=== PATIENT | male | born 1950 | race Caucasian/White ===

== ENCOUNTER 2016-11-05 10:33 | Inpatient (IN) | payer BC, OTHER ==
[2016-11-05] MEDS ORDERED: Ketorolac INJ* 15 MG/ML 1 ML VIAL IV ONE (10:58)
[2016-11-05] MEDS ORDERED: Ondansetron INJ* 2 MG/ML VIAL IV ONE (10:58)
[2016-11-05] MEDS ORDERED: Famotidine IV* 10 MG/ML 2 ML (20 mg) IV ONE (10:58)
--- NOTE | 2016-11-05 11:08 | ED ---
Abdominal Pain/Male - HPI Summary HPI Summary: 66 male presents to ED with complaints of RLQ pain that began yesterday and appeared to have worsened today. Patient states it began around the umbilicus and across mid abdomen but then RLQ began to become more sore upon palpation and and localized pain. Describes pain to be bloated, sharp and aching. Nothing makes pain better. Patient thought he was constipated as he has had infrequent small bowel movements however bowel movements do not relieve pain. Has not tried any medications. Tried drinking Frapiccino before arrival which "usually goes right through me" however did not help him. Patient denies urinary and genitalia symptoms. Never had any previous GI history other than GERD. No surgeries other than back surgery. Admits to nausea however denies vomiting. No fever/chills. No blood in stool, appear normal but small. No diarrhea. Has been traveling over the past few days which he thought causes some constipation, however the RLQ pain concerns him for his appendix. Eating and drinking normally although has not wanted to eat due feeling distended. PMHx includes HIV positive, non-detectable, LBBB, arthritis. No other complaints at this time. - History of Current Complaint Chief Complaint: EDAbdPain Stated Complaint: ABD PAIN Time Seen by Provider: 11/05/16 10:46 Hx Obtained From: Patient Onset/Duration: Sudden Onset, Lasting Days, Still Present, Worse Since Timing: Constant Severity Initially: Mild Severity Currently: Moderate Pain Intensity: 8 Pain Scale Used: 0-10 Numeric Location: Discrete At: RLQ, Umbilical Radiates: No Character: Sharp, Dull, Other: - aching Aggravating Factor(s): Other: - touch Alleviating Factor(s): Nothing Associated Signs And Symptoms: Positive: Constipation, Nausea. Negative: Fever , Back Pain, Blood in Stool, Urinary Symptoms, Vomiting, Diarrhea - Risk Factors Testicular Torsion: Negative Cardiac Risk Factors: Negative - Allergies/Home Medications Allergies/Adverse Reactions: Allergies Allergy/AdvReac Type Severity Reaction Status Date / Time environmental Allergy Mild See Comment Uncoded 09/17/12 09:07 PMH/Surg Hx/FS Hx/Imm Hx Endocrine/Hematology History: Reports: Hx Blood Disorders - HIV Denies: Hx Diabetes Cardiovascular History: Reports: Hx Hypercholesterolemia, Other Cardiovascular Problems/Disorders - LBBB Denies: Hx Hypertension, Hx Pacemaker/ICD Respiratory History: Denies: Hx Asthma Musculoskeletal History: Reports: Hx Back Problems Sensory History: Denies: Hx Hearing Aid Psychiatric History: Denies: Hx Panic Disorder - Surgical History Surgery Procedure, Year, and Place: LUMBAR L4-5; LASIX SURGERY; TINSILECTOMY; CARDIAC CATH. NO STENTS - Immunization History Immunizations Up to Date: Yes Infectious Disease History: No Infectious Disease History: Reports: Hx Human Immunodeficiency Virus (HIV) Denies: Traveled Outside the [place] in Last 30 Days - Family History Known Family History: Positive: None - Social History Alcohol Use: Rare Substance Use Type: Reports: None Smoking Status (MU): Never Smoked Tobacco Review of Systems Constitutional: Negative Cardiovascular: Negative Respiratory: Negative Positive: Abdominal Pain, Nausea, Other - constipation Genitourinary: Negative Skin: Negative Neurological: Negative All Other Systems Reviewed And Are Negative: Yes Physical Exam Triage Information Reviewed: Yes Vital Signs On Initial Exam: Initial Vitals Temp Pulse Resp BP Pulse Ox 97.6 F 94 16 137/98 100 11/05/16 10:40 11/05/16 10:40 11/05/16 10:40 11/05/16 10:40 11/05/16 10:40 Vital Signs Reviewed: Yes Appearance: Positive: Well-Appearing, No Pain Distress, Well-Nourished Skin: Positive: Warm, Skin Color Reflects Adequate Perfusion, Dry. Negative: Cold, Numb, Diaphoretic, Pale, Erythema @ Head/Face: Positive: Normal Head/Face Inspection Eyes: Positive: EOMI, BEL, Conjunctiva Clear ENT: Positive: Normal ENT inspection, Hearing grossly normal, Pharynx normal Neck: Positive: Supple, Nontender Respiratory/Lung Sounds: Positive: Clear to Auscultation, Breath Sounds Present. Negative: Rales, Rhonchi, Wheezes Cardiovascular: Positive: Normal, RRR, Pulses are Symmetrical in both Upper and Lower Extremities. Negative: Murmur, Rub Abdomen Description: Positive: No Organomegaly, Soft, CVA Tenderness (R), Distended, Guarding, McBurney's Point Tenderness, Other: - tender on palpation of RLQ, rest of exam non tender. negative psoas and rovsings. negative murphys. + rebound tenderness.. Negative: Bruit, CVA Tenderness (L), Hernia @, Peritoneal Signs, Pulsatile Mass Bowel Sounds: Positive: Hypoactive Male Genital Exam: Positive: normal genitalia Musculoskeletal: Positive: Normal, Strength/ROM Intact Neurological: Positive: Normal, Sensory/Motor Intact, Alert, Oriented to Person Place, Time, Reflexes Intact Psychiatric: Positive: Affect/Mood Appropriate - Alyce Coma Scale Coma Scale Total: 15 Diagnostics - Vital Signs Vital Signs Temp Pulse Resp BP Pulse Ox 11/05/16 10:40 97.6 F 94 16 137/98 100 - Laboratory Result Diagrams: 11/05/16 11:28 11/05/16 11:28 Lab Statement: Any lab studies that have been ordered have been reviewed, and results considered in the medical decision making process. Abdominal Pain Fem Course/Dx - Course Course Of Treatment: labs obtained. given fluids, pepcid, zofran and toradol to help with nausea and pain. patient also having some acid reflux and asked for "tums" which is why pepcid and maalox was given. patient had relief. urinalysis obtained. no concern for bleeding and unable to obtain stool culture. due to PE findings, lab results and clinical presentation obtained CT to rule out appendicitis, kidney stone, and diverticulitis. Patient was signed out to Dr Perea at 12:40pm due to changing location of shift, pending CT results. - Diagnoses Differential Diagnosis/HQI/PQRI: Appendicitis, Bowel Obstruction, Constipation, Diverticulitis, Ureteral Stone, Urinary Tract Infection Provider Diagnoses: Abdominal pain - Provider Notifications Discussed Care Of Patient With: Dr Perea Time Discussed With Above Provider: 12:30 Discharge - Discharge Plan Condition: Stable Disposition: OTHER Discharge Disposition Comment: Signed out to Dr Perea at 12:30pm due to changing shift Referrals: Jesus Mancia MD [Primary Care Provider] -
[2016-11-05] MEDS: NS 0.9% 1000 ML* 2,000 ML IV ONE ×2 (11:28→12:05)
[2016-11-05] MEDS ORDERED: Al Hydrox/Mg Hydrox/Simet LIQ* 30 ML UDC PO ONE (11:39)
[2016-11-05 11:43] LABS: Hematocrit 44 % (42-52); Hemoglobin 15.2 g/dl (14.0-18.0); Mean Corpuscular HGB Conc 35 g/dl (31-36); Mean Corpuscular Hemoglobin 33 pg (27-31); Mean Corpuscular Volume 94 fL (80-94); Mean Platelet Volume 8 um3 (7.4-10.4); Red Blood Count 4.66 10^6/ul (4.0-5.4); Red Cell Distribution Width 13 % (10.5-15); White Blood Count 12.6 10^3/ul (3.5-10.8)
[2016-11-05 11:44] LABS: Add Diff/Slide Review? Slide Review Added; Comments Flag Yes
[2016-11-05 12:00] LABS: Albumin 4.3 g/dL (3.2-5.2); BUN/Creatinine Ratio 14.2 (8-20); C Reactive Protein 28.56 mg/L (< 5.00); Calcium 9.2 mg/dL (8.6-10.3); EGFR African American 83.2 (>60); EGFR Non-African American 64.7 (>60); Globulin 3.1 g/dL (2-4); Magnesium 2.1 mg/dL (1.9-2.7); Total Bilirubin 0.9 mg/dL (0.2-1.0); Total Protein 7.4 g/dL (6.4-8.9)
[2016-11-05] MEDS ORDERED: Iohexol 300* (CONTRAST) 10 ML SDV IV ONE (12:56)
--- NOTE | 2016-11-05 14:57 | RAD ---
INDICATION: RIGHT lower quadrant pain for one day. Associated back pain. Previous back surgery. COMPARISON: No relevant prior exams available on the [facility] PACS for comparison. TECHNIQUE: Multidetector CT images were obtained from the lung bases to the ischial tuberosities with 100 mL Omnipaque 300 IV and oral contrast. Multiplanar reformation. REPORT: Minimal dependent basilar atelectasis. 1 cm well-circumscribed water density cyst at the dome of the LEFT lateral hepatic segment. Unremarkable gallbladder, pancreas, spleen. Unremarkable upper GI and small bowel. Dilated retrocecal appendix measuring up to 1.6 cm diameter with mural enhancement and 1.5 cm relative low density appendicolith at the proximal segment. Mild to moderate periappendiceal inflammatory stranding. No periappendiceal abscess collection evident. Trace free fluid at the RIGHT lower quadrant. Negative for free intraperitoneal air. Unremarkable colon. Small fat-containing umbilical hernia without inflammatory change. Normal adrenal glands. Unremarkable kidneys with symmetric nephrograms and pyelograms. Unremarkable ureters and urinary bladder as well as the prostate and seminal vesicles. Negative for lymphadenopathy. Mild atherosclerotic plaque of normal diameter abdominal aorta and iliac arteries. Physiologic distention of the IVC. Negative for suspicious osseous lesions. IMPRESSION: Acute appendicitis with predisposing appendicolith at the proximal segment. Negative for periappendiceal abscess or resulting bowel obstruction.
[2016-11-05] MEDS ORDERED: Bupivacaine 0.25% SDV* 30 ML ONE (16:11)
[2016-11-05] MEDS ORDERED: fentaNYL* 50 MCG/ML 2 ML VIAL (100 MCG VIAL) ONE (16:39)
[2016-11-05] MEDS ORDERED: Midazolam* 1 MG/ML 2 ML VIAL (2 MG) ONE (16:39)
[2016-11-05] MEDS ORDERED: Propofol* 10 MG/ML 20 ML BTL IV PUSH ONE (16:46)
[2016-11-05] MEDS ORDERED: Dexamethasone IV* 4 MG/ML 1 ML (4 MG) ONE (16:46)
[2016-11-05] MEDS ORDERED: Succinylcholine* 20 MG/ML 10 ML VIAL ONE (16:46)
[2016-11-05] MEDS ORDERED: Cisatracurium* 2 MG/ML MDV 5 ML ONE (16:46)
[2016-11-05] MEDS ORDERED: Lidocaine 2% PF * 5 ML VIAL ONE (16:46)
[2016-11-05] MEDS ORDERED: HYDROmorphone INJ* 1 MG/ML CARPUJECT SYRINGE ONE (17:17)
[2016-11-05] MEDS ORDERED: HYDROmorphone INJ* 1 MG/ML CARPUJECT SYRINGE IV PRN (17:41)
[2016-11-05] MEDS ORDERED: PROCHLORPERAZINE INJ 5 MG/ML 2 ML VIAL IV PRN (17:41)
[2016-11-05] MEDS ORDERED: Ondansetron INJ* 2 MG/ML VIAL IV PRN ×2 (17:41→18:45)
[2016-11-05] MEDS ORDERED: Acetaminophen TAB* 325 MG PO PRN (17:41)
[2016-11-05] MEDS ORDERED: fentaNYL* 50 MCG/ML 2 ML VIAL (100 MCG VIAL) IV PRN (17:41)
[2016-11-05] MEDS ORDERED: DiMENhydriNATE IV* 50 MG/ML VIAL IV PUSH PRN (17:41)
[2016-11-05] MEDS ORDERED: Ketorolac INJ* 30 MG/ML 1 ML VIAL ONE (18:15)
[2016-11-05] MEDS ORDERED: Ondansetron INJ* 2 MG/ML VIAL ONE (18:15)
[2016-11-05] MEDS ORDERED: Neostigmine Methylsulfate* 2 MG/2 ML SYRINGE ONE (18:40)
--- NOTE | 2016-11-05 18:43 | SURGPN ---
Brief Operative Note - Surgery Procedures: OPERATIVE REPORT PRE-OP: Acute appendicitis POST-OP:Acute gangrenous appendicitis PROCEDURE: Laparoscopic appendectomy SURGEON: MD Sulema ANESTHESIA: General with local with Dr. Leo ASST: none IVF: 1 liter of crystalloid EBL: min SPECIMEN: appendix DRAIN: none WOUND CLASS:4 COMPLICATIONS: none TO PACU
[2016-11-05] MEDS ORDERED: Ketorolac INJ* 30 MG/ML 1 ML VIAL IV PUSH PRN (18:45)
[2016-11-05] MEDS ORDERED: Morphine INJ* 2 MG/ML 1 ML SYRINGE (TWO MG - NEW SYRINGE VERSION) IV PRN (18:45)
[2016-11-05] MEDS: NS 0.9% 1000 ML* 1,000 ML IV SCH (19:38)
[2016-11-05] MEDS ORDERED: EFAVIRENZ PO SCH ×2 (21:00→23:00)
[2016-11-05] MEDS ORDERED: [UNRECOGNIZED DRUG - OTHER] PO SCH ×2 (21:00→23:00)
[2016-11-05] MEDS ORDERED: EMTRICITAB PO SCH ×2 (21:00→23:00)
--- NOTE | 2016-11-05 21:17 | HP ---
CC: [facility]; Dr. Jesus Mancia, [facility]* HISTORY AND PHYSICAL: DATE OF ADMISSION: 11/05/16 CHIEF COMPLAINT: Right lower quadrant abdominal pain and anorexia. HISTORY OF PRESENT ILLNESS: Mr. Jordan Suero is a 66-year-old gentleman, who is HIV positive, was very well treated with almost no viral load, who yesterday developed some epigastric discomfort when he was flying back from [place]. Then last night, the pain became more severe in the epigastrium. This morning, he was noted to have right lower quadrant abdominal pain, which has worsened over the course of the day. He presented to the emergency room. He was noted to be afebrile. He had no complaints of shakes or chills. He was noted to have tenderness in the right lower quadrant and be mildly distended. He underwent laboratory workup, included a white blood cell count of 12,600 with a neutrophil percent of 84.6 with a lymphocyte percent of 6.9. Absolute lymphocyte was 0.9. Electrolytes, BUN and creatinine were within normal limits. He had a C- reactive protein of 28.56. He underwent a CT scan of the abdomen and pelvis. I did review these images. This shows a dilated retrocecal appendix with an appendicolith at the base of the appendix. There is a mild periappendiceal inflammation and some trace fluid in the area but no evidence of abscess or perforation. These findings are consistent with acute appendicitis. There were no other acute findings noted. Surgical consultation was obtained. PAST MEDICAL HISTORY: 1. HIV positivity. 2. Left bundle branch block. 3. History of gastroesophageal reflux disease. 4. Remote history of atrial fibrillation. 5. Hypercholesterolemia. PAST SURGICAL HISTORY: Back surgery. MEDICATIONS: Include: 1. Tylenol p.r.n. 2. Pravastatin 1 tablet p.o. daily. 3. Naprosyn 400 mg p.r.n. 4. Nexium 20 mg daily. 5. Atripla 1 tablet p.o. daily. 6. Aspirin 325 mg daily. ALLERGIES: He has no known drug allergies. SOCIAL HISTORY: He is in a same-sex relationship. He does not use tobacco. He drinks alcohol on a social basis. 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 REVIEW OF SYSTEMS: Hematologic: He is HIV positive. He is followed by Dr. Mancia at the [facility]. He states that his blood counts have been remarkably stable over the past several years. He states no viral HIV load. His most recent blood work done on 07/16/16 showed a CD3 absolute count of 1191 and a CD4 absolute count of 599. All of his other lymphocyte parameters were within normal range. He recently underwent a stress test at [facility], it was normal. An EKG also showed no change from 2008 and did include a left bundle branch block. PHYSICAL EXAMINATION GENERAL: A well-developed, well-nourished male with normal attention to grooming. VITAL SIGNS: He is afebrile, pulse 94, blood pressure 160/91. LUNGS: Clear to auscultation with normal respiratory effort. HEART: Regular rate and rhythm without murmurs, rubs, or gallops. ABDOMEN: Soft, slightly distended. He has an umbilical hernia but that is easily reducible. Diminished bowel sounds throughout. He has tenderness in the right lower quadrant with localized rebound, guarding, and peritoneal irritation. PSYCHIATRIC: He is awake, alert, and oriented x3. He has normal judgment and insight. IMPRESSION: 1. Acute appendicitis. 2. Human immunodeficiency positivity, well treated and asymptomatic as per above. 3. Left bundle branch block. 4. Gastroesophageal reflux disease. 5. Hypercholesterolemia. PLAN: Laparoscopic appendectomy today. He is optimized from his HIV standpoint, I discussed his care with Dr. Kartik Hinkle here, hospitalist, and in this situation with his most recent laboratory reports and clinical status, there is no further intervention or laboratory workup that is indicated other than the usual treatment for acute appendicitis including the normal antibiotic regimen. Plan will be for laparoscopic appendectomy today. The procedure was discussed with the patient. The risks but not limited to bleeding, infection, intra- abdominal abscess formation, injury to peritoneal and retroperitoneal structures , possibility of an open procedure, and the risk of deep vein thrombosis and pulmonary embolism, risks of general anesthesia. Hospital stay, his recovery times, and activity restrictions were all explained. The patient's questions were answered, we will proceed today. [id number]/[facility] #: [id number] [facility]
[2016-11-05] MEDS ORDERED: NS 0.9% 1000 ML* 1,000 ML IV ONE (21:45)
[2016-11-05] MEDS ORDERED: Acetaminophen TAB* 325 MG ONE (21:55)
[2016-11-05] MEDS: Acetaminophen TAB* 325 MG PO PRN (21:56)
[2016-11-05] MEDS ORDERED: Ketorolac INJ* 15 MG/ML 1 ML VIAL ONE (22:22)
[2016-11-05] MEDS: Ketorolac INJ* 15 MG/ML 1 ML VIAL IV PUSH PRN (22:24)
[2016-11-05 22:46] LABS: Hematocrit 38 % (42-52); Hemoglobin 13.2 g/dl (14.0-18.0); Mean Corpuscular HGB Conc 35 g/dl (31-36); Mean Corpuscular Hemoglobin 33 pg (27-31); Mean Corpuscular Volume 94 fL (80-94); Mean Platelet Volume 8 um3 (7.4-10.4); Red Blood Count 3.97 10^6/ul (4.0-5.4); Red Cell Distribution Width 13 % (10.5-15); White Blood Count 6.3 10^3/ul (3.5-10.8)
[2016-11-05 23:01] LABS: Albumin 3.2 g/dL (3.2-5.2); BUN/Creatinine Ratio 11.8 (8-20); Calcium 7.9 mg/dL (8.6-10.3); EGFR African American 93.7 (>60); EGFR Non-African American 72.8 (>60); Globulin 2.5 g/dL (2-4); Potassium 3.8 mmol/L (3.5-5.0); Total Bilirubin 1.4 mg/dL (0.2-1.0); Total Protein 5.7 g/dL (6.4-8.9)
[2016-11-05] MEDS: oxyCODONE/Acetamin 5/325 MG* TAB PO PRN (23:09)
[2016-11-06] MEDS ORDERED: NS 0.9% 1000 ML* 1,000 ML IV ONE ×2 (01:38→04:00)
--- NOTE | 2016-11-06 04:19 | OP ---
CC: [facility]; Dr. Jesus Mancia, [facility]* OPERATIVE REPORT: DATE OF OPERATION: 11/05/16 - Inpatient, room 340-01 DATE OF : 48 SURGEON: Umer Leone MD OBGYN SPECIALIST: None. ANESTHESIOLOGIST: Osiris Leo MD ANESTHESIA: Local with general. PRE-OP DIAGNOSIS: Acute appendicitis. POST-OP DIAGNOSIS: Acute gangrenous appendicitis. OPERATIVE PROCEDURE: Laparoscopic appendectomy. INDICATIONS: Mr. Jordan Suero is a 66-year-old gentleman, presents to the emergency room with almost 24 hours of abdominal pain, mainly in the right lower quadrant. CT scan has confirmed acute appendicitis and now being taken to the operating room for a laparoscopic appendectomy. The procedure was discussed with the patient and the risks and benefits were all explained and outlined in the preoperatively transcribed history and physical. ESTIMATED BLOOD LOSS: Minimal. SPECIMEN: Appendix. WOUND CLASSIFICATION: IV. DRAINS: None. COMPLICATION: None. IV FLUIDS: 1 L crystalloid. FINDINGS: The patient had acute gangrenous appendicitis with an appendicolith at the base of the appendix. Upon entering the abdomen, there was no evidence of perforation or abscess; however, manipulating the appendix, there was a small amount of purulent intra-appendiceal lumen contents, spilled, which was quickly aspirated and irrigated giving the case a wound status of 4. No appendicoliths were spilled. DESCRIPTION OF PROCEDURE: Written informed consent was obtained, the abdomen was marked with indelible ink and antibiotics were administered. The patient was taken to the operating room and placed in the supine position. Sequential compression devices and warming blanket were applied. The abdomen was prepped and draped in the usual sterile fashion. Time-out verification was completed. Initially, a small transverse incision was made just above the umbilicus at the midline and the fascia was divided and the peritoneal cavity was entered under direct vision. A 12-mm blunt port was inserted and the abdomen was insufflated to 15 mmHg. Under direct vision, a 5-mm port was placed in the left lower abdominal wall and a second 5-mm port was placed in the suprapubic position. The appendix was identified. It was intraperitoneal from the most part, however , it was gangrenous, markedly distended, and thick walled with a very edematous mesentery. It was quite adherent to the cecum and to the small bowel. I freed this up with blunt dissection. I did tear a small portion of the distal part of the appendix and a small amount of turbid purulent fluid was spilled. I was able to irrigate this and clamped the appendix to prevent further spillage or contamination. There was no evidence of abscess or perforation. The appendix was quite adherent to the lateral wall of the cecum and retroperitoneum and the lateral abdominal wall and once I was able to free this up with some blunt dissection, I identified the thickened mesentery and I took this sequentially with the mesentery down towards the base of the appendix. It was obvious that there was a rather large appendicolith at the base of the appendix and distal to this was the gangrenous portion and very proximal portion of the appendix, which only included 3 or 4 mm was viable and healthy as was the cecum. With care, I continued to mobilize and divide the mesentery and also dissected some of the cecum, especially laterally, it was quite adherent to the anterior abdominal wall due to some inflammation to assure myself, but I was able to get the stapler down below the gangrenous portion of the appendix. I carefully evaluated the terminal ileum, I entered the cecum and there was no evidence of impingement or interference in my dissection. Next, the martinez load of a 45-mm stapler was then used along the base of the appendix, actually on to the cecum and was fired through healthy tissue. The appendix was then placed through an EndoCatch bag and brought out through the umbilical incision. The right lower quadrant was irrigated thoroughly. Hemostasis was assured. The staple line was intact and through viable tissue. Almost 3 L of saline was used to irrigate the right lower quadrant and pelvis until clear. I did not place a drain. All ports were removed under the direct vision of the camera. The umbilical fascia was closed with interrupted 0 Polysorb suture. Skin at all 3 incisions was approximated with subcuticular 4-0 Polysorb suture. Steri-Strips were applied. The patient tolerated the procedure well and was taken to the recovery room in stable condition. [id number]/[facility] #: [id number] [place]
[2016-11-06] MEDS: oxyCODONE/Acetamin 5/325 MG* TAB PO PRN ×4 (05:10→20:12)
--- NOTE | 2016-11-06 07:32 | PN ---
Progress Note - Progress Note Date of Service: 11/06/16 SOAP: Subjective: Patient initially seen at 0645 this morning I discussed his care with nursing staff and Dr. Galloway throughout the night and was kept informed of his condition He had a Tmax of 101.5 and developed tachycardia and hypotension and required 3 liters of NS bolus overnight in addition to his IVF Labs last night showed normal WBC, renal function and lactic acid. This morning he is without complaint except for abdominal pain-he has not taken any pain meds until just this morning when he asked for a percocet. He has had no N/V and has an appetite and would like to eat. He had 2 loose BM's overnight and has passed some flatus He has had no CP or SOB He is urinating and is ambulating to the bathroom on his own. Objective: [] Temp Pulse Resp BP Pulse Ox 98.4 F 108 16 123/66 91 11/06/16 03:34 11/06/16 04:57 11/06/16 05:10 11/06/16 04:57 11/06/16 04:57 Intake & Output 11/04/16 11/05/16 11/06/16 11/07/16 06:59 06:59 06:59 06:59 Intake Total 96191 Output Total 775 Balance 13362 Weight 176 lb Intake: IV Fluids 01811 LR 1250 NS (0.9%) 3820 Oral 540 Output: Urine 775 Other: # Bowel Movements 1 Estimated Stool Amount Medium PEX: Awake alert and comfortable,NAD Lungs are clear with slight decreased breath sounds at the bases Cor is RRR and rapid, regular Abd is soft and slightly distended. Incisions are clean and dry. Bowel sounds are present but hypoactive. There is appropriate incisional tenderness and some tenderness in the right lower quadrant. There is no peritoneal irritation, rigidity or guarding. Ext without edema Laboratory Last Values WBC 6.3 10^3/ul (3.5-10.8) 11/05/16 22:30 RBC 3.97 10^6/ul (4.0-5.4) L 11/05/16 22:30 Hgb 13.2 g/dl (14.0-18.0) L 11/05/16 22:30 Hct 38 % (42-52) L 11/05/16 22:30 MCV 94 fL (80-94) 11/05/16 22:30 MCH 33 pg (27-31) H 11/05/16 22:30 MCHC 35 g/dl (31-36) 11/05/16 22:30 RDW 13 % (10.5-15) 11/05/16 22:30 Plt Count 185 10^3/ul (150-450) 11/05/16 22:30 MPV 8 um3 (7.4-10.4) 11/05/16 22:30 Neut % (Auto) 85.2 % (38-83) H 11/05/16 22:30 Lymph % (Auto) 9.1 % (25-47) L 11/05/16 22:30 Barren % (Auto) 5.3 % (1-9) 11/05/16 22:30 Eos % (Auto) 0.2 % (0-6) 11/05/16 22:30 Baso % (Auto) 0.2 % (0-2) 11/05/16 22:30 Absolute Neuts (auto) 5.3 10^3/ul (1.5-7.7) 11/05/16 22:30 Absolute Lymphs (auto) 0.6 10^3/ul (1.0-4.8) L 11/05/16 22:30 Absolute Monos (auto) 0.3 10^3/ul (0-0.8) 11/05/16 22:30 Absolute Eos (auto) 0 10^3/ul (0-0.6) 11/05/16 22:30 Absolute Basos (auto) 0 10^3/ul (0-0.2) 11/05/16 22:30 Absolute Nucleated RBC 0 10^3/ul 11/05/16 22:30 Nucleated RBC % 0 11/05/16 22:30 Sodium 137 mmol/L (133-145) 11/05/16 22:30 Potassium 3.8 mmol/L (3.5-5.0) 11/05/16 22:30 Chloride 110 mmol/L (101-111) 11/05/16 22:30 Carbon Dioxide 23 mmol/L (22-32) 11/05/16 22:30 Anion Gap 4 mmol/L (2-11) 11/05/16 22:30 BUN 12 mg/dL (6-24) 11/05/16 22:30 Creatinine 1.02 mg/dL (0.67-1.17) 11/05/16 22:30 Est GFR ( Amer) 93.7 (>60) 11/05/16 22:30 Est GFR (Non-Af Amer) 72.8 (>60) 11/05/16 22:30 BUN/Creatinine Ratio 11.8 (8-20) 11/05/16 22:30 Glucose 107 mg/dL (70-100) H 11/05/16 22:30 Lactic Acid 1.2 mmol/L (0.5-2.0) 11/05/16 22:30 Calcium 7.9 mg/dL (8.6-10.3) L 11/05/16 22:30 Magnesium 2.1 mg/dL (1.9-2.7) 11/05/16 11:28 Total Bilirubin 1.40 mg/dL (0.2-1.0) H 11/05/16 22:30 AST 17 U/L (13-39) 11/05/16 22:30 ALT 21 U/L (7-52) 11/05/16 22:30 Alkaline Phosphatase 63 U/L (34-104) 11/05/16 22:30 C-Reactive Protein 28.56 mg/L (< 5.00) H 11/05/16 11:28 Total Protein 5.7 g/dL (6.4-8.9) L 11/05/16 22:30 Albumin 3.2 g/dL (3.2-5.2) 11/05/16 22:30 Globulin 2.5 g/dL (2-4) 11/05/16 22:30 Albumin/Globulin Ratio 1.3 (1-3) 11/05/16 22:30 Lipase 18 U/L (11.0-82.0) 11/05/16 11:28 Blood cultures are pending Assessment: POD# 1 s/p laparoscopic appendectomy for gangrenous appendicitis Sepsis HIV positive GERD Plan: He has responded to fluids with improvement in BP and decrease in HR. He is now afebrile. On Monday he was in [place] and traveled back to [place] late Monday night and he developed abdominal pain in [place]. He had very little po intake on Monday and had nothing to eat or drink on Monday prior to presentation to the ER-thus I think he was quite dehydrated on presentation and in addition to his septic state he required quite a bit of IV fluids to achieve euvolemia. Overall this morning he has improved. Plan will be careful observation, check labs and continue IV antibiotics and fluids. He has had adequate urine output. At this point I do not feel that there is continuing intra-abdominal sepsis ( appendiceal stump leak, visceral injury, abscess) but he will need to be followed clinically very carefully and if he does not show continued improvement or worsening I will consider a return to the operating room for laparoscopy and evaluation. I discussed this with him at length this morning and he is aware of this possibility. He will be kept NPO for now Check this morning's labs Subq heparin PPI IVF IV Zosyn Discussed with Dr. Galloway this morning-I appreciate his assistance. He feels he is on the appropriate antibiotics. I also discussed with patient and his partner Oneil.
[2016-11-06 07:47] LABS: Hematocrit 37 % (42-52); Hemoglobin 12.7 g/dl (14.0-18.0); Mean Corpuscular HGB Conc 35 g/dl (31-36); Mean Corpuscular Hemoglobin 33 pg (27-31); Mean Corpuscular Volume 95 fL (80-94); Mean Platelet Volume 8 um3 (7.4-10.4); Red Blood Count 3.85 10^6/ul (4.0-5.4); Red Cell Distribution Width 13 % (10.5-15); White Blood Count 10.3 10^3/ul (3.5-10.8)
[2016-11-06 07:55] LABS: Urine Bilirubin Negative (Negative); Urine Glucose Negative (Negative); Urine Nitrite Negative (Negative)
[2016-11-06] MEDS: Ketorolac INJ* 15 MG/ML 1 ML VIAL IV PUSH PRN ×3 (08:01→20:47)
[2016-11-06] MEDS: Pantoprazole IV* 40 MG IV SCH (08:01)
[2016-11-06] MEDS: Heparin VIAL(*) 5000 UNITS/ML VIAL (FIVE THOUSAND) SUBCUT SCH ×3 (08:02→23:59)
[2016-11-06 08:12] LABS: BUN/Creatinine Ratio 9.3 (8-20); Calcium 7.7 mg/dL (8.6-10.3); EGFR African American 79.2 (>60); EGFR Non-African American 61.6 (>60); Potassium 4.2 mmol/L (3.5-5.0)
[2016-11-06] MEDS: NS 0.9% 1000 ML* 1,000 ML IV SCH ×2 (09:38→17:49)
--- NOTE | 2016-11-06 10:04 | PN ---
Progress Note - Progress Note Date of Service: 11/06/16 SOAP: Subjective: He is doing well-ambulated in the halls quite a bit and wants to eat Objective: Temp Pulse Resp BP Pulse Ox 98.7 F 100 16 114/65 93 11/06/16 07:56 11/06/16 07:56 11/06/16 07:56 11/06/16 07:56 11/06/16 07:56 PEX: Comfortable Abd is soft and non-distended. Appropriate incisional tenderness. No peritoneal irritation. Laboratory Last Values WBC 10.3 10^3/ul (3.5-10.8) 11/06/16 07:38 RBC 3.85 10^6/ul (4.0-5.4) L 11/06/16 07:38 Hgb 12.7 g/dl (14.0-18.0) L 11/06/16 07:38 Hct 37 % (42-52) L 11/06/16 07:38 MCV 95 fL (80-94) H 11/06/16 07:38 MCH 33 pg (27-31) H 11/06/16 07:38 MCHC 35 g/dl (31-36) 11/06/16 07:38 RDW 13 % (10.5-15) 11/06/16 07:38 Plt Count 176 10^3/ul (150-450) 11/06/16 07:38 MPV 8 um3 (7.4-10.4) 11/06/16 07:38 Neut % (Auto) 85.6 % (38-83) H 11/06/16 07:38 Lymph % (Auto) 8.0 % (25-47) L 11/06/16 07:38 [place] % (Auto) 5.9 % (1-9) 11/06/16 07:38 Eos % (Auto) 0.2 % (0-6) 11/06/16 07:38 Baso % (Auto) 0.3 % (0-2) 11/06/16 07:38 Absolute Neuts (auto) 8.9 10^3/ul (1.5-7.7) H 11/06/16 07:38 Absolute Lymphs (auto) 0.8 10^3/ul (1.0-4.8) L 11/06/16 07:38 Absolute Monos (auto) 0.6 10^3/ul (0-0.8) 11/06/16 07:38 Absolute Eos (auto) 0 10^3/ul (0-0.6) 11/06/16 07:38 Absolute Basos (auto) 0 10^3/ul (0-0.2) 11/06/16 07:38 Absolute Nucleated RBC 0 10^3/ul 11/06/16 07:38 Nucleated RBC % 0 11/06/16 07:38 INR (Anticoag Therapy) 1.22 (0.89-1.11) H 11/06/16 07:38 APTT 33.2 seconds (26.0-36.3) 11/06/16 07:38 Sodium 138 mmol/L (133-145) 11/06/16 07:38 Potassium 4.2 mmol/L (3.5-5.0) 11/06/16 07:38 Chloride 112 mmol/L (101-111) H 11/06/16 07:38 Carbon Dioxide 22 mmol/L (22-32) 11/06/16 07:38 Anion Gap 4 mmol/L (2-11) 11/06/16 07:38 BUN 11 mg/dL (6-24) 11/06/16 07:38 Creatinine 1.18 mg/dL (0.67-1.17) H 11/06/16 07:38 Est GFR ( Amer) 79.2 (>60) 11/06/16 07:38 Est GFR (Non-Af Amer) 61.6 (>60) 11/06/16 07:38 BUN/Creatinine Ratio 9.3 (8-20) 11/06/16 07:38 Glucose 102 mg/dL (70-100) H 11/06/16 07:38 Lactic Acid 1.2 mmol/L (0.5-2.0) 11/06/16 07:38 Calcium 7.7 mg/dL (8.6-10.3) L 11/06/16 07:38 Magnesium 2.1 mg/dL (1.9-2.7) 11/05/16 11:28 Total Bilirubin 1.40 mg/dL (0.2-1.0) H 11/05/16 22:30 AST 17 U/L (13-39) 11/05/16 22:30 ALT 21 U/L (7-52) 11/05/16 22:30 Alkaline Phosphatase 63 U/L (34-104) 11/05/16 22:30 C-Reactive Protein 28.56 mg/L (< 5.00) H 11/05/16 11:28 Total Protein 5.7 g/dL (6.4-8.9) L 11/05/16 22:30 Albumin 3.2 g/dL (3.2-5.2) 11/05/16 22:30 Globulin 2.5 g/dL (2-4) 11/05/16 22:30 Albumin/Globulin Ratio 1.3 (1-3) 11/05/16 22:30 Lipase 18 U/L (11.0-82.0) 11/05/16 11:28 Urine Color Yellow 11/06/16 07:40 Urine Appearance Clear 11/06/16 07:40 Urine pH 5.0 (5-9) 11/06/16 07:40 Ur Specific [place] 1.013 (1.010-1.030) 11/06/16 07:40 Urine Protein Negative (Negative) 11/06/16 07:40 Urine Ketones Negative (Negative) 11/06/16 07:40 Urine Blood Negative (Negative) 11/06/16 07:40 Urine Nitrate Negative (Negative) 11/06/16 07:40 Urine Bilirubin Negative (Negative) 11/06/16 07:40 Urine Urobilinogen Negative (Negative) 11/06/16 07:40 Ur Leukocyte Esterase Negative (Negative) 11/06/16 07:40 Urine Glucose Negative (Negative) 11/06/16 07:40 Assessment: S/P appendectomy Labs reviewed-normal WBC, hgb and lactic acid His BP and HR are much improved and he is doing well Plan: Start clear liquids IVF IV antibiotics Observe for now
--- NOTE | 2016-11-06 17:12 | ED ---
Fadia Christensen Edward, scribed for Pietro Perea MD on 11/05/16 at 1241 . Progress - Progress Note Progress Note: Pt signed out by Gina Olivia. 66 y/o male presents to the ED c/o RLQ ABD pain since yesterday, worsening. Yesterday the pain was located in the epigastric region. Pt also c/o GERD. Denies fever. Associated sx: mild nausea (resolved) and chills. PE - VITAL SIGNS: Reviewed. GENERAL: Patient is a well-developed and nourished male who is lying comfortable in the stretcher. ~Patient is not in any acute respiratory distress. HEAD AND FACE: Normocephalic and atraumatic. EYES: PERRLA, EOMI x 2, No injected conjunctiva. EARS: Hearing grossly intact. Ear canals and tympanic membranes are WNL. MOUTH: Oropharynx within normal limits. NECK: Supple, trachea is midline, no adenopathy, no JVD. CHEST: Symmetric, no tenderness at palpation LUNGS: Clear to auscultation bilaterally. No wheezing or crackles. CVS: RRR, S1 and S2 present, no murmurs or gallops appreciated. ABDOMEN: Soft, positive RLQ tenderness. No signs of distention. Positive bowel sounds. Guarding without rebound, and no masses palpated. No abdominal bruit or pulsations. EXTREMITIES: FROM in all major joints, no edema, no cyanosis or clubbing. NEURO: Alert and oriented x 3. No acute neurological deficits. Speech is normal. SKIN: Dry and warm - Results/Orders Results/Orders: EKG - SINUS TACHYCARDIA @ 103 BPM. LBBB. ABD/PEL CT - Acute appendicitis with predisposing appendicolith at the proximal segment. Negative for periappendiceal abscess or resulting bowel obstruction. Course/Dx - Course Course Of Treatment: labs obtained. given fluids, pepcid, zofran and toradol to help with nausea and pain. patient also having some acid reflux and asked for "tums" which is why pepcid was given. patient had relief. urinalysis obtained. no concern for bleeding and unable to obtain stool culture. due to lab results and clinical presentation obtained CT to rule out appendicitis. Pt admitted to Dr. Leone at 14:50. ASSESSMENT AND PLAN - Pt is signed out by ARAM Caro. Pt was awaiting abd pel ct r/o appendicitis. CT positive for appendicitis. Dr Leone came to the ED and accepted the pt for further workup and management. The patient is hemodynamically stable and A&Ox3. - Diagnoses Provider Diagnoses: Appendicitis - Provider Notifications Discussed Care Of Patient With: Umer Leone Time Discussed With Above Provider: 14:50 Instructed by Provider To: Admit As Inpatient The documentation as recorded by the Fadia bright Edward accurately reflects the service I personally performed and the decisions made by Eliazar callejas Walter, MD.
[2016-11-06] MEDS: [UNRECOGNIZED DRUG - OTHER] PO SCH (20:13)
[2016-11-06] MEDS: EMTRICITAB PO SCH (20:13)
[2016-11-06] MEDS: EFAVIRENZ PO SCH (20:13)
[2016-11-07] MEDS: oxyCODONE/Acetamin 5/325 MG* TAB PO PRN ×6 (00:49→23:40)
[2016-11-07] MEDS: NS 0.9% 1000 ML* 1,000 ML IV SCH (01:32)
[2016-11-07] MEDS: Ketorolac INJ* 15 MG/ML 1 ML VIAL IV PUSH PRN ×4 (03:37→22:24)
[2016-11-07 07:08] LABS: Hematocrit 32 % (42-52); Hemoglobin 11.6 g/dl (14.0-18.0); Mean Corpuscular HGB Conc 36 g/dl (31-36); Mean Corpuscular Hemoglobin 34 pg (27-31); Mean Corpuscular Volume 94 fL (80-94); Mean Platelet Volume 8 um3 (7.4-10.4); Red Blood Count 3.42 10^6/ul (4.0-5.4); Red Cell Distribution Width 13 % (10.5-15); White Blood Count 9.9 10^3/ul (3.5-10.8)
[2016-11-07 07:22] LABS: BUN/Creatinine Ratio 9.4 (8-20); Calcium 7.8 mg/dL (8.6-10.3); EGFR African American 89.6 (>60); EGFR Non-African American 69.7 (>60); Potassium 3.5 mmol/L (3.5-5.0)
[2016-11-07] MEDS: Heparin VIAL(*) 5000 UNITS/ML VIAL (FIVE THOUSAND) SUBCUT SCH ×3 (07:51→23:41)
[2016-11-07] MEDS: Pantoprazole IV* 40 MG IV SCH (07:51)
[2016-11-07] MEDS ORDERED: NS 0.9% 1000 ML* 1,000 ML IV SCH (08:00)
--- NOTE | 2016-11-07 13:01 | PN ---
Progress Note - Progress Note Date of Service: 11/07/16 SOAP: Subjective: Patient seen at 0800 this morning. He has more incisional pain today-walked quite a bit yesterday He is tolerating liquids without N/V and is passing flatus and has several loose BM's as well. Urinating clear urine in adequate amounts. Objective: Tmax 100.5 Temp Pulse Resp BP Pulse Ox 98.5 F 102 18 139/71 95 11/07/16 11:13 11/07/16 11:13 11/07/16 11:55 11/07/16 11:13 11/07/16 11:13 Intake & Output 11/05/16 11/06/16 11/07/16 11/08/16 06:59 06:59 06:59 06:59 Intake Total 10148 3547 2121 Output Total 775 2500 400 Balance 22383 1047 1721 Weight 176 lb Intake: IV Fluids 70027 1617 1881 LR 1250 NS (0.9%) 3820 1607 1881 IVPB 112 210 zosyn 210 Oral 540 1720 240 Output: Urine 775 2500 400 Other: Estimated Void Medium Date of Last Bowel 11/06/16 Movement # Bowel Movements 1 1 Estimated Stool Amount Medium Medium Small PEX; Comfortable and awake and alert Lungs are clear with decreased sounds at both bases. Cor is RRR and rapid Abd is soft and slightly distended. Incisions are clean and dry. Bowel sounds are present and are hyperactive but not high pitched or tinkling. There is some mild right lower abdominal pain. No rebound or peritoneal irritation. Laboratory Last Values WBC 9.9 10^3/ul (3.5-10.8) 11/07/16 06:48 RBC 3.42 10^6/ul (4.0-5.4) L 11/07/16 06:48 Hgb 11.6 g/dl (14.0-18.0) L 11/07/16 06:48 Hct 32 % (42-52) L 11/07/16 06:48 MCV 94 fL (80-94) 11/07/16 06:48 MCH 34 pg (27-31) H 11/07/16 06:48 MCHC 36 g/dl (31-36) 11/07/16 06:48 RDW 13 % (10.5-15) 11/07/16 06:48 Plt Count 162 10^3/ul (150-450) 11/07/16 06:48 MPV 8 um3 (7.4-10.4) 11/07/16 06:48 Neut % (Auto) 86.4 % (38-83) H 11/07/16 06:48 Lymph % (Auto) 5.3 % (25-47) L 11/07/16 06:48 [place] % (Auto) 6.0 % (1-9) 11/07/16 06:48 Eos % (Auto) 2.0 % (0-6) 11/07/16 06:48 Baso % (Auto) 0.3 % (0-2) 11/07/16 06:48 Absolute Neuts (auto) 8.5 10^3/ul (1.5-7.7) H 11/07/16 06:48 Absolute Lymphs (auto) 0.5 10^3/ul (1.0-4.8) L 11/07/16 06:48 Absolute Monos (auto) 0.6 10^3/ul (0-0.8) 11/07/16 06:48 Absolute Eos (auto) 0.2 10^3/ul (0-0.6) 11/07/16 06:48 Absolute Basos (auto) 0 10^3/ul (0-0.2) 11/07/16 06:48 Absolute Nucleated RBC 0 10^3/ul 11/07/16 06:48 Nucleated RBC % 0 11/07/16 06:48 INR (Anticoag Therapy) 1.22 (0.89-1.11) H 11/06/16 07:38 APTT 33.2 seconds (26.0-36.3) 11/06/16 07:38 Sodium 139 mmol/L (133-145) 11/07/16 06:48 Potassium 3.5 mmol/L (3.5-5.0) 11/07/16 06:48 Chloride 112 mmol/L (101-111) H 11/07/16 06:48 Carbon Dioxide 20 mmol/L (22-32) L 11/07/16 06:48 Anion Gap 7 mmol/L (2-11) 11/07/16 06:48 BUN 10 mg/dL (6-24) 11/07/16 06:48 Creatinine 1.06 mg/dL (0.67-1.17) 11/07/16 06:48 Est GFR ( Amer) 89.6 (>60) 11/07/16 06:48 Est GFR (Non-Af Amer) 69.7 (>60) 11/07/16 06:48 BUN/Creatinine Ratio 9.4 (8-20) 11/07/16 06:48 Glucose 94 mg/dL (70-100) 11/07/16 06:48 Lactic Acid 1.2 mmol/L (0.5-2.0) 11/06/16 07:38 Calcium 7.8 mg/dL (8.6-10.3) L 11/07/16 06:48 Magnesium 2.1 mg/dL (1.9-2.7) 11/05/16 11:28 Total Bilirubin 1.40 mg/dL (0.2-1.0) H 11/05/16 22:30 AST 17 U/L (13-39) 11/05/16 22:30 ALT 21 U/L (7-52) 11/05/16 22:30 Alkaline Phosphatase 63 U/L (34-104) 11/05/16 22:30 C-Reactive Protein 28.56 mg/L (< 5.00) H 11/05/16 11:28 Total Protein 5.7 g/dL (6.4-8.9) L 11/05/16 22:30 Albumin 3.2 g/dL (3.2-5.2) 11/05/16 22:30 Globulin 2.5 g/dL (2-4) 11/05/16 22:30 Albumin/Globulin Ratio 1.3 (1-3) 11/05/16 22:30 Lipase 18 U/L (11.0-82.0) 11/05/16 11:28 Urine Color Yellow 11/06/16 07:40 Urine Appearance Clear 11/06/16 07:40 Urine pH 5.0 (5-9) 11/06/16 07:40 Ur Specific [place] 1.013 (1.010-1.030) 11/06/16 07:40 Urine Protein Negative (Negative) 11/06/16 07:40 Urine Ketones Negative (Negative) 11/06/16 07:40 Urine Blood Negative (Negative) 11/06/16 07:40 Urine Nitrate Negative (Negative) 11/06/16 07:40 Urine Bilirubin Negative (Negative) 11/06/16 07:40 Urine Urobilinogen Negative (Negative) 11/06/16 07:40 Ur Leukocyte Esterase Negative (Negative) 11/06/16 07:40 Urine Glucose Negative (Negative) 11/06/16 07:40 Blood cultures negative at 24 hours. Assessment: POD# 2 s/p lap appy for acute gangrenous appendicitis. HIV positive Sepsis Plan: Fever last night is concerning and he still has a slight tachycardia. WBC is normal as well as renal function and he mobilizing fluid and is having loose bowel movements and passing flatus. He has been tolerating clear liquids. Exam is as expected as this point post operatively. I do not feel that there is acute intra-abdominal process at this point but he will require continued careful evaluation. Will continue IV abx-Zosyn Medical consult regarding any specific management of HIV meds and medical care. Advance diet PPI and subq heparin Increase activity Pulmonary toilet. He requires continued inpatient care. All above discussed with patient and his partner.
--- NOTE | 2016-11-07 15:15 | CONS ---
CONSULTATION REPORT: DATE OF CONSULT: 11/07/16 REQUESTING PHYSICIAN: Dr. Leone. CONSULTING SERVICE: Infectious Disease. REASON FOR CONSULTATION: Fever after appendectomy, HIV. IMPRESSION: 1. Appendicitis, status post laparoscopic appendectomy and small appendiceal abscess with a low-grade fever today. He is overall otherwise improving as far as abdominal pain and bowels, so I think that is likely just normal postoperative fever. His heart rate was in the 130s, coming down to the . He has no chest pain, cough or shortness of breath. 2. Human immunodeficiency virus infection, well controlled. Last CD4 count 600. As far as I know, the viral loads have been undetected. RECOMMENDATIONS: 1. Agree with Zosyn. If his fever persists, we will check a chest x-ray. 2. Continue Atripla and he will follow up with me in a week or two to establish care for following with HIV as he is on a suboptimal regimen as far as long-term side effects go. HISTORY OF PRESENT ILLNESS: This is a 66-year-old man with HIV, admitted with right lower quadrant pain, found to have appendicitis, taken to the operating room by Dr. Leone on the with findings as noted above. He was febrile at 39 degrees on admission and had no fever until this morning at 38.1. He is a little bit short of breath, using his incentive spirometer, but no cough or chest pain. He has right-sided abdominal pain, which is slowly getting better. He is passing gas and has soft to runny stools. He has had no white count today. His heart rate has been in the , blood pressure 150s. He is starting to eat and drink clear diet. PAST MEDICAL HISTORY: 1. HIV. 2. Left bundle branch block. 3. Gastroesophageal reflux disease. 4. Atrial fibrillation. 5. Hyperlipidemia. 6. Spine surgery. MEDICATIONS: 1. Tylenol. 2. Atripla. 3. Heparin subcutaneous injection. 4. Zofran. 5. Pantoprazole. 6. Zosyn 3.375 g IV every 8 hours. ALLERGIES: No known drug allergies. FAMILY HISTORY: No recurrent infections. SOCIAL HISTORY: He lives in [place]. He still works in [employer]. Drinks alcohol occasionally. REVIEW OF SYSTEMS: All negative to a full review of systems except as noted above to full 14-point review of systems. PHYSICAL EXAM: Vital Signs: Temperature 37, heart rate 100, respiratory rate 18, blood pressure 150/70, O2 sat 93% on 2 L. In general, he is awake, not in distress. Neurologic: He is oriented x3. Follows all commands. HEENT: There is no conjunctival hemorrhage. Oropharynx without lesions. Neck: Supple without nuchal rigidity. Lymph Nodes: There is no inguinal, axillary, or epitrochlear lymphadenopathy. Heart is regular and tachycardic without murmurs. Lungs: There are decreased breath sounds at the bases bilaterally without wheezes, rales, or rhonchi. Abdomen: There are bowel sounds present, it is mildly distended. There is right-sided tenderness to palpation. There is no rebound. There are laparoscopy ports that are intact without erythema. Skin: There are no rashes or splinter hemorrhages. Musculoskeletal: There is no spine tenderness to palpation or joint synovitis. DIAGNOSTIC STUDIES/LAB DATA: White blood cell count 9.9, hemoglobin 11.6, platelets 162,000. Creatinine is 1.0. Please see impressions and recommendations outlined above, which I have discussed with Dr. Leone. Thank you for asking me to see Mr. Suero in consultation. [id number]/[facility] #: [id number] B[facility]ILDREN'S HOSPITALVernell
[2016-11-07] MEDS: EFAVIRENZ PO SCH (21:05)
[2016-11-07] MEDS: EMTRICITAB PO SCH (21:05)
[2016-11-07] MEDS: [UNRECOGNIZED DRUG - OTHER] PO SCH (21:05)
[2016-11-08] MEDS: oxyCODONE/Acetamin 5/325 MG* TAB PO PRN ×3 (03:37→19:48)
[2016-11-08] MEDS: Ketorolac INJ* 15 MG/ML 1 ML VIAL IV PUSH PRN (04:21)
[2016-11-08 06:33] LABS: Hematocrit 32 % (42-52); Hemoglobin 11.5 g/dl (14.0-18.0); Mean Corpuscular HGB Conc 36 g/dl (31-36); Mean Corpuscular Hemoglobin 34 pg (27-31); Mean Corpuscular Volume 94 fL (80-94); Mean Platelet Volume 8 um3 (7.4-10.4); Red Blood Count 3.44 10^6/ul (4.0-5.4); Red Cell Distribution Width 13 % (10.5-15); White Blood Count 10.8 10^3/ul (3.5-10.8)
[2016-11-08 06:47] LABS: Albumin 2.7 g/dL (3.2-5.2); BUN/Creatinine Ratio 9.2 (8-20); Calcium 7.9 mg/dL (8.6-10.3); EGFR African American 86.8 (>60); EGFR Non-African American 67.5 (>60); Globulin 2.7 g/dL (2-4); Potassium 3.4 mmol/L (3.5-5.0); Total Bilirubin 0.8 mg/dL (0.2-1.0); Total Protein 5.4 g/dL (6.4-8.9)
[2016-11-08] MEDS: Heparin VIAL(*) 5000 UNITS/ML VIAL (FIVE THOUSAND) SUBCUT SCH ×2 (07:51→16:13)
[2016-11-08] MEDS: Pantoprazole IV* 40 MG IV SCH (07:53)
[2016-11-08] MEDS ORDERED: Ketorolac INJ* 15 MG/ML 1 ML VIAL IV PUSH PRN (08:34)
--- NOTE | 2016-11-08 12:07 | PN ---
Subjective Date of Service: 11/08/16 Interval History: Patient seen and examined at bedside. Patient states he feels much better than yesterday. T max 99.1. Tolerating regular diet without difficulty. HR improved to low 100s. Family History: Unchanged from Admission Social History: Unchanged from Admission Past Medical History: Unchanged from Admission Objective Active Medications: Acetaminophen (Tylenol Tab*) 650 mg PO Q6H PRN Efavirenz/Emtricitabine/Tenofovir (Atripla(Nf)) 1 tab PO BEDTIME [facility] Heparin Sodium (Porcine) (Heparin Vial(*)) 5,000 units SUBCUT Q8H [facility] Piperacillin Sod/Tazobactam (Sod 3.375 gm/ Sodium Chloride) 100 mls @ 25 mls/ hr IVPB Q8H [facility] Morphine Sulfate (Morphine Inj (Syringe)*) 2 mg IV Q2H PRN Ondansetron HCl (Zofran Inj*) 4 mg IV Q6H PRN Oxycodone/Acetaminophen (Percocet 5/325 Tab*) 1 tab PO Q4H PRN Pantoprazole Sodium (Protonix Iv*) 40 mg IV Q24H [facility] Vital Signs 11/08/16 11:04 Temperature 98.5 F Pulse Rate 105 Respiratory 18 Rate Blood Pressure 147/76 (mmHg) O2 Sat by Pulse 92 Oximetry Oxygen Devices in Use Now: None Appearance: sitting up in bed, NAD Eyes: No Scleral Icterus, PERRLA Ears/Nose/Mouth/Throat: NL Teeth, Lips, Gums, Mucous Membranes Moist Neck: NL Appearance and Movements; NL JVP Respiratory: Symmetrical Chest Expansion and Respiratory Effort, Clear to Auscultation Cardiovascular: NL Sounds; No Murmurs; No JVD, RRR Abdominal: - - BS in all four quadrants; Slight tenderness RLQ. Extremities: No Edema Skin: No Rash or Ulcers, - - Incision C/D/I Neurological: Alert and Oriented x 3 Result Diagrams: 11/08/16 06:15 11/08/16 06:15 Assess/Plan/Problems-Billing Patient is a 66 y/o M w/ hx of HIV who is s/p appendectomy. Hospitalists were asked to assist with co-management for patient's persistent fevers and tachycardia. - Patient Problems (1) Fever Comment: T max 99.1 overnight. Suspect most-likely post-operative. WBC remains normal. Heart rate has improved today. Would get CXR if fever returns. Continue IV Zosyn. IVF held for now. (2) S/P appendectomy Comment: Managment per Surgery. Appendix was gangrenous. Continue IV Zosyn. Diet advanced to regular this AM. Continue PRN pain medication. Toradol stopped. (3) HIV (human immunodeficiency virus infection) Comment: Appreciate ID consult. Last CD4 count 600. Viral load undetectable. Patient will follow-up with Dr. Andre as an outpatient. (4) GERD (gastroesophageal reflux disease) Comment: IV Protonix (5) DVT (deep venous thrombosis) Comment: SQ Heparin (6) Full code status Status and Disposition: Management per surgery.
--- NOTE | 2016-11-08 15:00 | PN ---
Progress Note - Progress Note Date of Service: 11/08/16 SOAP: Subjective: Patient initially seen at 0815 this morning He had some dry heaves early this morning but it was after taking Percocet and now he feels better. He is tolerating liquids better and feels less distended. He has had one loose BM already today. Incisional pain improved. Objective: Temp Pulse Resp BP Pulse Ox 98.5 F 105 18 147/76 92 11/08/16 11:04 11/08/16 11:04 11/08/16 11:04 11/08/16 11:04 11/08/16 11:04 Intake & Output 11/06/16 11/07/16 11/08/16 11/09/16 06:59 06:59 06:59 06:59 Intake Total 89158 3547 4437 1948 Output Total 775 2500 2025 625 Balance 80065 1047 2412 1323 Weight 176 lb Intake: IV Fluids 52558 1617 3057 700 LR 1250 NS (0.9%) 3820 1607 3057 700 IVPB 112 210 100 318 zosyn 210 100 318 Oral 540 1720 1280 930 Output: Urine 775 2500 2025 600 Yoo 25 Other: Estimated Void Medium Date of Last Bowel 11/06/16 Movement # Bowel Movements 1 1 1 1 Estimated Stool Amount Medium Medium Medium Small # Voids 1 PEX: Comfortable Lungs are clear Abd is soft and slightly distended. Incisions are clean and dry. Bowel sounds are present and are more normoactive than yesterday, not high pitched or tinkling. There is appropriate incisional pain and some very mild pain in the right lower quadrant. Laboratory Results - last 24 hr 11/08/16 11/08/16 11/08/16 06:15 06:15 06:15 WBC 10.8 RBC 3.44 L Hgb 11.5 L Hct 32 L MCV 94 MCH 34 H MCHC 36 RDW 13 Plt Count 196 MPV 8 Neut % (Auto) 85.0 H Lymph % (Auto) 5.3 L [place] % (Auto) 6.3 Eos % (Auto) 3.2 Baso % (Auto) 0.2 Absolute Neuts (auto) 9.2 H Absolute Lymphs (auto) 0.6 L Absolute Monos (auto) 0.7 Absolute Eos (auto) 0.3 Absolute Basos (auto) 0 Absolute Nucleated RBC 0 Nucleated RBC % 0 Sodium 137 Potassium 3.4 L Chloride 112 H Carbon Dioxide 20 L Anion Gap 5 BUN 10 Creatinine 1.09 Est GFR ( Amer) 86.8 Est GFR (Non-Af Amer) 67.5 BUN/Creatinine Ratio 9.2 Glucose 110 H Lactic Acid 0.5 Calcium 7.9 L Total Bilirubin 0.80 AST 11 L ALT 14 Alkaline Phosphatase 66 Total Protein 5.4 L Albumin 2.7 L Globulin 2.7 Albumin/Globulin Ratio 1.0 Blood cultures are negative at 48 hours Assessment: POD# 3 s/p lap appy for acute gangrenous appendicitis Sepsis-improving HIV positive Plan: Overall he is improved-his HR is coming down and he has now been afebrile for 24 hours. He continues to mobilize fluids and he is tolerating food. WBC remains normal, normal renal function. Will advance diet Saline lock IVF Continue IV antibiotics PPI and subq heparin Appreciate hospitalist consult If continued improvement, plan d/c 11/09.
[2016-11-08] MEDS: [UNRECOGNIZED DRUG - OTHER] PO SCH (21:26)
[2016-11-08] MEDS: EFAVIRENZ PO SCH (21:26)
[2016-11-08] MEDS: EMTRICITAB PO SCH (21:26)
[2016-11-09] MEDS: oxyCODONE/Acetamin 5/325 MG* TAB PO PRN ×2 (00:07→04:14)
[2016-11-09] MEDS: Heparin VIAL(*) 5000 UNITS/ML VIAL (FIVE THOUSAND) SUBCUT SCH ×2 (00:07→07:44)
[2016-11-09 06:58] LABS: Hematocrit 31 % (42-52); Hemoglobin 10.8 g/dl (14.0-18.0); Mean Corpuscular HGB Conc 35 g/dl (31-36); Mean Corpuscular Hemoglobin 33 pg (27-31); Mean Corpuscular Volume 94 fL (80-94); Mean Platelet Volume 8 um3 (7.4-10.4); Red Blood Count 3.26 10^6/ul (4.0-5.4); Red Cell Distribution Width 13 % (10.5-15)
[2016-11-09] MEDS: Pantoprazole IV* 40 MG IV SCH (07:44)
--- NOTE | 2016-11-09 08:48 | PN ---
Progress Note - Progress Note Date of Service: 11/09/16 SOAP: Subjective: He had some nausea earlier this morning and vomited some of the apple sauce that he had eaten in the middle of the night. He feels much better and slept well. He took a Percocet at 0430 and feels that this makes him nauseous on an empty stomach He is passing large amounts of flatus but no further loose stools He has minimal pain which is much better than yesterday He is ambulating without difficulty and would like to go home Objective: AFebrile for 48 hours Temp Pulse Resp BP Pulse Ox 98.9 F 99 14 148/74 93 11/09/16 03:41 11/09/16 03:41 11/09/16 06:14 11/09/16 03:41 11/09/16 03:41 Intake & Output 11/07/16 11/08/16 11/09/16 11/10/16 06:59 06:59 06:59 06:59 Intake Total 3547 4437 2928 Output Total 2500 2025 1625 400 Balance 1047 2412 1303 -400 Intake: IV Fluids 1617 3057 930 NS (0.9%) 1607 3057 720 zosyn 210 IVPB 210 100 318 zosyn 210 100 318 Oral 1720 1280 1680 Output: Urine 2500 2025 1600 400 Yoo 25 Other: Estimated Void Medium Date of Last Bowel 11/06/16 Movement # Bowel Movements 1 1 1 Estimated Stool Amount Medium Medium Small # Voids 1 Blood cultures negative at 72 hours Assessment: POD# 4 s/p lap appy for acute gangrenous appendicitis Afebrile Blood cultures negative Nausea this morning-probably due to taking Percocet on an empty stomach Normal WBC Plan: Will plan d/c home today-with nausea earlier this AM will make sure he does well with breakfast and lunch and if OK with send home after lunch. No antibiotics needed as outpatient Outpatient follow up Postoperative care and restrictions all explained to patient.
--- NOTE | 2016-11-09 08:59 | PN ---
Subjective Date of Service: 11/09/16 Interval History: Patient seen and examined at bedside. Patient having some emesis this AM. He thinks this is from pain medication on an empty stomach. HR improved and afebrile for last 48 hours. Family History: Unchanged from Admission Social History: Unchanged from Admission Past Medical History: Unchanged from Admission Objective Active Medications: Acetaminophen (Tylenol Tab*) 650 mg PO Q6H PRN Efavirenz/Emtricitabine/Tenofovir (Atripla(Nf)) 1 tab PO BEDTIME [facility] Heparin Sodium (Porcine) (Heparin Vial(*)) 5,000 units SUBCUT Q8H [facility] Piperacillin Sod/Tazobactam (Sod 3.375 gm/ Sodium Chloride) 100 mls @ 25 mls/ hr IVPB Q8H [facility] Morphine Sulfate (Morphine Inj (Syringe)*) 2 mg IV Q2H PRN Ondansetron HCl (Zofran Inj*) 4 mg IV Q6H PRN Oxycodone/Acetaminophen (Percocet 5/325 Tab*) 1 tab PO Q4H PRN Pantoprazole Sodium (Protonix Iv*) 40 mg IV Q24H [facility] 11/09/16 11/09/16 11/09/16 03:41 04:14 06:14 Temperature 98.9 F Pulse Rate 99 Respiratory 16 16 14 Rate Blood Pressure 148/74 (mmHg) O2 Sat by Pulse 93 Oximetry Oxygen Devices in Use Now: None Appearance: sitting up in bed, NAD Eyes: No Scleral Icterus, PERRLA Ears/Nose/Mouth/Throat: NL Teeth, Lips, Gums Neck: NL Appearance and Movements; NL JVP Respiratory: Symmetrical Chest Expansion and Respiratory Effort, Clear to Auscultation Cardiovascular: NL Sounds; No Murmurs; No JVD, RRR Abdominal: - - slightly distended; +BS Extremities: No Edema Skin: - - Incisions without erythema Neurological: Alert and Oriented x 3 Lines/Tubes/Other Access: Clean, Dry and Intact Peripheral IV Nutrition: Taking PO's Result Diagrams: 11/09/16 05:14 11/08/16 06:15 Assess/Plan/Problems-Billing Patient is a 66 y/o M w/ hx of HIV who is s/p appendectomy. Hospitalists were asked to assist with co-management for patient's persistent fevers and tachycardia. - Patient Problems (1) Fever Comment: Afebrile for last 48 hours and tachycardia has resolved. Fever most likely post-operative. Continue antibiotics and transition to PO at discharge. (2) S/P appendectomy Comment: Managment per Surgery. Appendix was gangrenous. Continue Zosyn and transition to oral at discharge. Pain controlled with percocet. (3) HIV (human immunodeficiency virus infection) Comment: Appreciate ID consult. Last CD4 count 600. Viral load undetectable. Patient will follow-up with Dr. Andre as an outpatient. (4) GERD (gastroesophageal reflux disease) Comment: IV Protonix (5) DVT (deep venous thrombosis) Comment: SQ Heparin (6) Full code status Status and Disposition: Management per surgery. Hospital medicine will sign off for now. Please call with further questions.
[2016-11-09 09:02] VITALS: BP 178/89
[2016-11-09] MEDS: Acetaminophen TAB* 325 MG PO PRN (10:38)
[2016-11-09] MEDS ORDERED: Hydrocortisone 1% CREAM* 30 GM TUBE TOPICAL SCH (11:00)
--- NOTE | 2016-11-09 13:10 | PN ---
Progress Note - Progress Note Date of Service: 11/09/16 SOAP: Subjective: Reports feeling much better. No more nausea or vomitimg. Tolerated breakfast and about to finish eating his lunch. Ready to go home. Objective: Awake and alert, in NAD. VSS, afebrile Abdomen soft, NT, ND. Incisions C/D/I. Assessment: A 66 y/o male, s/p laparoscopic appendectomy, doing well. Plan: D/C to home today. Patient declined any narcotic Rx, would like to take Tylenol or Ibuprofen only for pain. F/U next week in office.
--- NOTE | 2016-11-10 02:29 | DS ---
AMENDED REPORT NOW INCLUDES COSIGNER DESIGNATION - ESIGNED BEFORE ADJUSTMENT DISCHARGE SUMMARY: DATE OF ADMISSION: 11/06/16 DATE OF DISCHARGE: 11/09/16 PATIENT OF: Dr. Umer Leone * (DICTATED BY ARAM FOSTER) ADMISSION DIAGNOSIS: Right lower quadrant abdominal pain. DISCHARGE DIAGNOSES: 1. Right lower quadrant abdominal pain. 2. Acute appendicitis. 3. Postoperative fever. ADMITTING PHYSICIAN: Umer Leone MD CONSULTATION: Alysia Medina NP and Cristo Marie MD PROCEDURE: Laparoscopic appendectomy on 11/06/16. HISTORY OF PRESENT ILLNESS: Mr. Suero is a pleasant 66-year-old gentleman who was seen in the emergency room with complaints of acute onset of abdominal pain. The patient described that he was travelling back from [place] the night before and noticed some abdominal pain that was severe in epigastric area. The following morning, he noted pain had travelled and more prominent on the right lower quadrant that worsened over the course of the day. He finally landed in [place] and he went to the emergency room, noted to be afebrile. Also he was complaining of shakes and chill associated with this pain. He underwent laboratory workup that revealed mild leukocytosis with white count of 12,[address] also [address] a [address] scan of the abdomen and pelvis that was reviewed and showed a dilated retrocecal appendix with an appendicolith in the base of the appendix. Given his ongoing symptoms, the patient was admitted for evaluation of abdominal pain. HOSPITAL COURSE: The patient was taken to the operating room on 11/06/16 where he had a laparoscopic appendectomy by Dr. Leone. After recovery, the patient was transferred to the surgical floor for observation. It is to be noted that the patient has a history of HIV for which he has been treated and managed by his medical doctor and remarkably he has done very well with normal CD4 count and normal biannual blood counts as well. The patient did relatively well on the first day postoperatively; however, he is noted to have a low-grade fever as well as hypertension and tachycardia for which Infectious Disease consultation and hospitalist consultation was obtained. The patient continued to improve on a daily basis regardless of his low-grade fever and tachycardia. He was maintained prophylactically on Zosyn and started on clear liquid diet that he tolerated well and eventually advanced slowly as tolerated. He was ambulatory out of bed and in stable condition. His fever eventually resolved and his heart rate returned to normal range shortly after his surgery. He continued to improve and complained only of mild incisional tenderness that was well tolerated using pain medicine as needed. He was ambulatory and able to move his bowel. On the discharge day, he was ready to go home. The patient refused to take any narcotic scripts; however, I advised him to call the office if any pain medicine is needed, but for now, he will take Tylenol or ibuprofen as needed. DISCHARGE MEDICATIONS: Include: 1. Tylenol 650 mg p.o. q.6 hours p.r.n. for fever or pain. 2. Naproxen 440 mg p.o. q.6 hours as needed for pain. 3. Atripla 1 tablet p.o. daily. 4. Pravastatin 1 tablet p.o. daily. 5. Aspirin 325 mg p.o. daily. 6. Omeprazole 20 mg p.o. daily. PROBLEM LIST: Acute appendicitis, status post laparoscopic appendectomy on . ARAM FOSTER [id number]/[facility] #: [id number] [facility]
== END 2016-11-09 14:10 | disposition home or self-care (01) | DRG 341 ==
LOC: ED 10:33 → OR 15:03 → SSU 17:00 → OBSVTOIN 11-06 09:00
PROVIDERS: ADMIT Surgery; ATTEND Surgery
PROC: 0DTJ4ZZ Resection of Appendix, Percutaneous Endoscopic Approach (ICD-10-PCS; principal; 2016-11-06)
DX: K35.80 Unspecified acute appendicitis (principal); A41.9 Sepsis, unspecified organism; I48.91 Unspecified atrial fibrillation; Z72.89 Other problems related to lifestyle; I44.7 Left bundle-branch block, unspecified; K21.9 Gastro-esophageal reflux disease without esophagitis; M19.90 Unspecified osteoarthritis, unspecified site; Z21 Asymptomatic human immunodeficiency virus [HIV] infection status; E78.00 Pure hypercholesterolemia, unspecified; Z79.82 Long term (current) use of aspirin
CPT/HCPCS: 36415; 74177; 80048; 80053; 81003; 83605; 83690; 83735; 85025; 85610; 85730; 86140; 87040; 88304; 93005; A9270-GY; C1776; J0330; J1100; J1170; J1644; J1885; J2250; J2405; J2543; J2704; J3010; Q9967